=== PATIENT | male | born 1975 ===

== ENCOUNTER 2022-06-18 15:23 | Outpatient (REF) | payer SELFPAY ==
[2022-06-18 15:25] LABS: HCT 48.8 % (40.0-50.0); HGB 16.7 g/dL (13.5-17.5); MCH 30.5 pg (27.0-33.0); MCHC 34.2 % (32.0-36.0); MCV 89 fL (80-95); MPV 9.6 fL (8.0-11.0); Platelet Count 303 10^3/uL (130-400); RBC 5.47 10^6/uL (4.36-5.78); RDW-SD 39.8 fL; WBC 7.53 10^3/uL (4.4-10.8)
[2022-06-18 16:28] LABS: ALT 26 U/L (16-63); AST 24 U/L (15-37); Albumin 3.9 g/dL (3.4-5.0); Alkaline Phosphatase 79 U/L (46-116); Anion Gap 9.6 mmol/L (3-11); BUN 15 mg/dL (7-18); Bilirubin, Total 0.9 mg/dL (0.2-1.0); CO2 26.4 mmol/L (21.0-32.0); Calcium 9.1 mg/dL (8.5-10.1); Calculated LDL 122 mg/dL (<100); Chloride 102 mmol/L (98-107); Cholesterol 182 mg/dL (<200); Estimated GFR 93.42 (mL/min/1.73m2); Glucose 90 mg/dL (74-106); HDL Cholesterol 48 mg/dL (40-60); Sodium 138 mmol/L (136-145); Total Protein 7.7 g/dL (6.4-8.2); Triglyceride 62 mg/dL (<150)
[2022-06-26 10:26] LABS: Testosterone, Free 22.5 ng/dL (4.26-16.4); Testosterone, Total 819 ng/dL (240-950)
== END 2022-06-18 15:24 | disposition home or self-care (01) ==
LOC: NCHCN 15:23
PROVIDERS: Visit Provider Registered Nurse
DX: Z51.81 Encounter for therapeutic drug level monitoring (principal); E29.1 Testicular hypofunction; I10 Essential (primary) hypertension; Z85.47 Personal history of malignant neoplasm of testis
CPT/HCPCS: 80053; 80061; 84402; 84403; 85027

== ENCOUNTER 2024-10-31 15:16 | Outpatient (REF) | payer MEDICAID, SELFPAY ==
[2024-11-05 14:58] LABS: Testosterone, Free 16.5 ng/dL (4.26-16.4); Testosterone, Total 849 ng/dL (240-950)
== END 2024-10-31 15:17 | disposition home or self-care (01) ==
LOC: NCHCN 15:16
PROVIDERS: Visit Provider Family Medicine
DX: E29.1 Testicular hypofunction (principal)
CPT/HCPCS: 84402; 84403; 84443